=== PATIENT | male | born 1940 | race African-American/Black ===

== ENCOUNTER 2018-12-10 13:09 | Emergency (ER) | payer OTHER, MEDICAID ==
[~2018-12-10] VITALS: Ht 175.3 cm; Wt 56.0 kg
[2018-12-10] MEDS ORDERED: ACETAMINOPHEN 325MG TABLET PO ONE (14:45)
[2018-12-10] MEDS ORDERED: METHAZOLAMIDE 50MG TABLET PO ONE (15:00)
[2018-12-10] MEDS ORDERED: METHAZOLAMIDE 50MG TABLET PO SCH (15:00)
[2018-12-10 15:21] VITALS: BP 144/70
== END 2018-12-10 15:34 | disposition home or self-care (01) ==
LOC: ER 13:09
DX: H57.11 Ocular pain, right eye (principal); H40.9 Unspecified glaucoma; M19.90 Unspecified osteoarthritis, unspecified site; I10 Essential (primary) hypertension; Z98.890 Other specified postprocedural states
CPT/HCPCS: 99283